=== PATIENT | male | born 1950 ===

== ENCOUNTER 2018-10-26 16:44 | Emergency (ER) | payer MEDICARE, OTHER ==
--- NOTE | 2018-10-26 16:51 | EDM.PDOC ---
ED HPI GENERAL MEDICAL PROBLEM - General Chief Complaint: General Stated Complaint: DON'T FEEL GOOD [id number] Time Seen by Provider: 10/26/18 16:51 Source of Information: Reports: Patient, Old Records, RN, RN Notes Reviewed History Limitations: Reports: No Limitations - History of Present Illness INITIAL COMMENTS - FREE TEXT/NARRATIVE: Pt presents to ER from home by POV with c/o cold and flu-like symptoms for the past one week. Pt states that he has had congestion, non-productive cough, and chills. He has been taking Ibuprofen and Tylenol with some relief. He states that he used his neti-pot and and got "a lot of thick mucus" out of it. He states that tried to go to the clinic this afternoon but was able to get an appointment and was advised to come to the ER. 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: Acetaminophen, Home Treatments, NSAIDS - Related Data Allergies Allergy/AdvReac Type Severity Reaction Status Date / Time halothane Allergy Other Verified 10/26/18 16:48 Home Meds: Home Meds Aspirin 325 mg PO DAILY 11/19/15 [History] Diltiazem [Cardizem CD] 240 mg PO DAILY 11/19/15 [History] Hydrochlorothiazide 25 mg PO DAILY 11/19/15 [History] Lisinopril 40 mg PO DAILY 11/19/15 [History] Melatonin 5 mg PO QPM 11/19/15 [History] Clopidogrel [Plavix] 75 mg PO DAILY 01/30/18 [History] Metoprolol Succinate [Toprol Xl] 25 mg PO DAILY 01/30/18 [History] Nitroglycerin 0.4 mg PO ASDIRECTED PRN 01/30/18 [History] atorvaSTATin [Lipitor] 40 mg PO DAILY 01/30/18 [History] metFORMIN [Glucophage] 500 mg PO BID 01/30/18 [History] Past Medical History HEENT History: Reports: Cataract Cardiovascular History: Reports: Hypertension Musculoskeletal History: Reports: Gout Psychiatric History: Reports: Anxiety - Infectious Disease History Infectious Disease History: Reports: Chicken Pox, Measles, Mumps - Past Surgical History Other HEENT Surgeries/Procedures: retanal reattachment GI Surgical History: Reports: Appendectomy Social & Family History - Family History Family Medical History: Noncontributory - Tobacco Use Smoking Status *Q: Never Smoker - Living Situation & Occupation Living situation: Reports: Alone Occupation: Retired ED ROS GENERAL - Review of Systems Review Of Systems: ROS reveals no pertinent complaints other than HPI. ED EXAM, GENERAL - Physical Exam Exam: See Below Exam Limited By: No Limitations General Appearance: Alert, No Apparent Distress, Obese, Other (Ill but non- toxic appearing) Eye Exam: Bilateral Eye: Normal Inspection Ears: Normal External Exam, Normal Canal, Hearing Grossly Normal, Normal TMs Nose: No Blood, Nasal Drainage (clear) Throat/Mouth: Normal Inspection, Normal Lips, Normal Teeth, Normal Gums, Normal Oropharynx, Normal Voice, No Airway Compromise Head: Atraumatic, Normocephalic Neck: Normal Inspection, Supple, Non-Tender, Full Range of Motion. No: Lymphadenopathy (L), Lymphadenopathy (R) Respiratory/Chest: No Respiratory Distress, No Accessory Muscle Use, Chest Non- Tender, Crackles, Rhonchi (intermittent at Rt base). No: Rales, Wheezing Cardiovascular: Regular Rate, Rhythm, No Edema GI/Abdominal: Normal Bowel Sounds, Soft, Non-Tender, No Distention Back Exam: Normal Inspection Extremities: Normal Inspection, Normal Range of Motion, Non-Tender, Normal Capillary Refill, No Pedal Edema Neurological: Alert, Oriented, CN II-XII Intact, Normal Cognition, Normal Gait, No Motor/Sensory Deficits Psychiatric: Normal Affect, Normal Mood Skin Exam: Warm, Dry, Intact, Normal Color, No Rash Course - Vital Signs Last Recorded V/S: Last Vital Signs Temp 35.9 C 10/26/18 16:51 Pulse 63 10/26/18 16:51 Resp 16 10/26/18 16:51 BP 133/75 10/26/18 16:51 Pulse Ox 97 10/26/18 16:51 - Orders/Labs/Meds Orders: Active Orders 24 hr Category Date Time Status Chest 2V [CR] Stat Exams 10/26/18 16:51 Taken Benzonatate [Tessalon Perles] Med 10/26/18 17:38 Once 200 mg PO ONETIME ONE cefTRIAXone 1 GM,Lidocaine 1% 2.1 ML Med 10/26/18 17:37 Ordered cefTRIAXone [Rocephin] 1 gm Lidocaine 1% [Xylocaine-MPF 1%] 2.1 ml IM ONETIME Labs: Influenza A/B: negative - Radiology Interpretation Free Text/Narrative:: [facility] [place] [facility] Final Radiology Report Call: [phone] assistance Online chat: [email or web address] Name: SARAH HENDRIX Age: 68Years M Date: 10/26/2018 SSN: -- : [id number] Study: XR CHEST 2 VIEWS Requesting Physician: ÁLVARO JOSEPH Images: 2 Addl Studies: Provided Clinical History: Contrast: Contrast Medium: Contrast Amount: Contrast Method: CONFIDENTIALITY STATEMENT This report is intended only for use by the referring physician, and only in accordance with law. If you received this in error, call [phone]. Page 1 of 1 EXAM: XR Chest, 2 Views EXAM DATE/TIME: 10/26/2018 4:54 PM CLINICAL HISTORY: 68 years old, male; Signs and symptoms; Cough TECHNIQUE: Imaging protocol: XR of the chest, 2 views. COMPARISON: CR Chest 1V Frontal 11/19/2015 10:16 PM FINDINGS: Lungs: The lungs are hyperinflated, consistent with underlying small airways disease. Atelectatic and/or early infiltrative changes within the right lung base. Pleural space: Unremarkable. No pleural effusion. No pneumothorax. Heart/Mediastinum: Unremarkable. No cardiomegaly. Bones/joints: Unremarkable. IMPRESSION: 1. The lungs are hyperinflated, consistent with underlying small airways disease. 2. Atelectatic and/or early infiltrative changes within the right lung base. Thank you for allowing us to participate in the care of your patient. Dictated and Authenticated by: Gerber Huff DO 10/26/2018 5:05 PM Central Time ([place] & [place]) - Re-Assessments/Exams Free Text/Narrative Re-Assessment/Exam: 10/26/18 17:34 Pt with viral/influenza-like Sx's, negative flu-swab, and stable VS w/normal 02 sats. Chest XR w/atelectasis vs early infiltrate at Rt lung base. Plan to treat pt with Rocephin 1g IM + Zithromax 500mg qday x7 days, and have him f/u next week in clinic or return to ER if worse at any time. Departure - Departure Time of Disposition: 17:32 Disposition: Home, Self-Care 01 Condition: Good Clinical Impression: Viral URI with cough Pneumonia Qualifiers: Pneumonia type: due to unspecified organism Laterality: right Lung location: lower lobe of lung Qualified Code(s): J18.1 - Lobar pneumonia, unspecified organism - Discharge Information *PRESCRIPTION DRUG MONITORING PROGRAM REVIEWED*: No *COPY OF PRESCRIPTION DRUG MONITORING REPORT IN PATIENT DWIGHT: No Instructions: Upper Respiratory Infection, Adult, [id number], Community- Acquired Pneumonia, Adult, [id number] Forms: ED Department Discharge Additional Instructions: Rx: Zithromax 500mg Rx: Tessalon Perles 200mg Follow up in clinic if not improving in 4 to 5 days. Return to ER if worse at any time. - My Orders Last 24 Hours: My Active Orders 10/26/18 16:51 Chest 2V [CR] Stat 10/26/18 17:37 cefTRIAXone 1 GM,Lidocaine 1% 2.1 ML cefTRIAXone [Rocephin] 1 gm Lidocaine 1% [ Xylocaine-MPF 1%] 2.1 ml IM ONETIME 10/26/18 17:38 Benzonatate [Tessalon Perles] 200 mg PO ONETIME ONE - Assessment/Plan Last 24 Hours: My Active Orders 10/26/18 16:51 Chest 2V [CR] Stat 10/26/18 17:37 cefTRIAXone 1 GM,Lidocaine 1% 2.1 ML cefTRIAXone [Rocephin] 1 gm Lidocaine 1% [ Xylocaine-MPF 1%] 2.1 ml IM ONETIME 10/26/18 17:38 Benzonatate [Tessalon Perles] 200 mg PO ONETIME ONE
[2018-10-26 17:03] VITALS: BP 133/75
[2018-10-26] MEDS ORDERED: cefTRIAXone 1 GM, Lidocaine 1% 2.1 ML IM ONE ×2 (17:37)
[2018-10-26] MEDS ORDERED: Benzonatate 100 MG Cap PO ONE (17:38)
== END 2018-10-26 18:25 | disposition home or self-care (01) ==
LOC: DL.ED 16:44
DX: J18.1 Lobar pneumonia, unspecified organism (principal); J06.9 Acute upper respiratory infection, unspecified; I10 Essential (primary) hypertension; Z79.82 Long term (current) use of aspirin; Z88.8 Allergy status to other drugs, medicaments and biological substances; Z79.899 Other long term (current) drug therapy
CPT/HCPCS: 71046; 87804; 96372; 99283; A9270; J0696; J2001

== ENCOUNTER 2023-02-16 10:48 | Emergency (ER) | payer MEDICARE, OTHER ==
[2023-02-16 11:09] VITALS: BP 150/92; PULSE 115
== END 2023-02-16 11:39 | disposition home or self-care (01) ==
LOC: DL.ED 10:48
DX: S11.93XA Puncture wound without foreign body of unspecified part of neck, initial encounter (principal); S21.131A Puncture wound without foreign body of right front wall of thorax without penetration into thoracic cavity, initial encounter; S91.012A Laceration without foreign body, left ankle, initial encounter; S91.011A Laceration without foreign body, right ankle, initial encounter; S70.02XA Contusion of left hip, initial encounter; S00.81XA Abrasion of other part of head, initial encounter; S30.811A Abrasion of abdominal wall, initial encounter; I10 Essential (primary) hypertension; E66.9 Obesity, unspecified; Z68.37 Body mass index [BMI] 37.0-37.9, adult; Z88.8 Allergy status to other drugs, medicaments and biological substances; Z79.82 Long term (current) use of aspirin; Z79.899 Other long term (current) drug therapy; W54.0XXA Bitten by dog, initial encounter
CPT/HCPCS: 99283